=== PATIENT | male | born 1985 | race Caucasian/White ===

== ENCOUNTER 2020-01-08 08:35 | Outpatient (CLI) | payer BC, SELFPAY ==
--- NOTE | 2020-01-14 10:08 | SLEEP_ITS ---
Home Sleep Study DATE OF STUDY: 01/08/2020 REASON FOR THE STUDY: Excessive daytime sleepiness. 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 He has difficulty staying awake during the day and he dozes off if he sits down during the day. He has greater than normal fatigue with muscle aches and heat sensitivity. This has been going on for approximately 2 years. His has sleep apnea, but he does not have any relatives with sleep apnea. He rarely awakens from sleep feeling short of breath. Rarely has heartburn or belching or coughing at night. He never snores and it never is loud enough that others complain about it. He occasionally has trouble sleeping with the cold. He does not gasp for breath at night or have breathing problems at night witnessed by others. He constantly sweats excessively at night. He rarely notices his heart pounding or beating irregularly at night. He constantly falls asleep during the day, constantly, involuntarily, frequently while driving. He does not fall asleep with physical effort and he does not have loss of muscle tone with strong emotion. He constantly has daytime difficulty due to excessive sleepiness. He never feels paralyzed when waking or falling asleep and does not have vivid dreamlike scenes upon awakening or falling asleep. He is not afraid to go to sleep. He never has nightmares. He constantly remembers his dreams, occasionally has racing thoughts, frequently has sadness, depression, and anxiety. He constantly has muscular tension. He occasionally notices parts of his body jerking and he occasionally kicks at night. He constantly has crawly achy feeling in his legs. He occasionally has leg pain at night. He denies morning jaw pain, but occasionally grinds his teeth. He frequently is bothered by pain during the day. He is not awakened by pain at night. He frequently wakes up feeling stiff in the morning with sore achy muscles and pain in the neck and spine. He has fatigue, memory problems, concentration difficulties, depression. Bedtime is 10 p.m., falling asleep in 15 minutes, though sometimes as long as 1 hour. He occasionally awakens at night. If he awakens, he will eat cereal, readings on his telephone. He will stay awake for 1-2 hours, sometimes more. Weekends reveals that he goes to bed at midnight or an hour later. During the weekdays, he awakens at 4 or 5 a.m. On weekends, 6 to 7 a.m. He estimates 6-7 hours of sleep nightly. His poor sleep does make interactions with family more difficult. He does not take naps. Naps are not refreshing. He is usually drowsy in the morning for 3 hours or longer. MEDICAL COMORBIDITIES: Depression, ADHD, muscle pains. MEDICATIONS: 1. Paroxetine 10 mg a day. 2. Adderall XR 30 mg a day. 3. Bupropion XL 300 mg daily. HABITS: Never smoked tobacco. Caffeine, 2 to 3 beverages a day. No alcohol. DESCRIPTION OF THE STUDY: On the [place] Sleepiness Scale, the score is 14. This was conducted as an unattended type 3 portable home sleep test with 4 channel monitoring including respiratory effort channel, snoring channel, oxygen saturation channel, and heart rate channel. The study was scored using [facility] guidelines. The duration of the study is 8 hours 6 minutes. The apnea-hypopnea index is 4. Respiratory disturbance index is 5.6. Oxygen desaturation index is 3. Lowest desaturation is 80%. The patient had 5 apneas. 60% of the apneas were 3, were obstructive, 40% of the apneas were 2 were central. He had 23 hypopneas. He had 293 snoring events and 23 desaturations spending 5 minutes or 1% of the study below 88% saturation. Heart rate ranged from 58 to 128. IMPRESSION: 1. T
== END 2020-01-08 08:36 | disposition home or self-care (01) ==
PROVIDERS: PCP Family Medicine; Visit Provider Family Medicine
DX: G47.10 Hypersomnia, unspecified (principal)
CPT/HCPCS: 95806

== ENCOUNTER → 2020-12-13 06:02 | Outpatient (CLI) | payer BC, SELFPAY ==
[2020-12-13 19:10] LABS: SARS-CoV-2 RNA PCR Negative
== END ==
PROVIDERS: PCP Family Medicine; Visit Provider Internal Medicine Critical Care Medicine
DX: Z01.812 Encounter for preprocedural laboratory examination (principal); Z20.822 Contact with and (suspected) exposure to COVID-19
CPT/HCPCS: C9803; U0003; U0005

== ENCOUNTER 2020-12-16 09:02 | Outpatient (CLI) | payer BC, SELFPAY ==
--- NOTE | 2020-12-29 16:21 | WPDSLEEPSTUD ---
Sleep Study Date of Study: 12/16/20 Ordering Provider: Donnie Sykes MD Interpreting Physician: Sandhya Knight MD Sleep Study Type: Polysomnogram Height: 1.83 m Weight: 99.79 kg Body Mass Index: 29.8 Neck Circumference (inches): 17 [place]: 14 Reason for Sleep Study Hypersomnolence, falling asleep in the day, muscle aches Sleep History Lalo Ca is a 35 year old man with hypersomnolence and a home sleep test 01/08/2020 showing an AHI of 4 with desaturation to 80%. He presents now for a split night study to diagnosis and treat suspected obstructive sleep apnea. He has difficulty staying awake during the day and he dozes off if he sits down during the day. He has greater than normal fatigue with muscle aches and heat sensitivity. This has been going on for approximately 2 years. His has sleep apnea, but he does not have any relatives with sleep apnea. He rarely awakens from sleep feeling short of breath. Rarely has heartburn or belching or coughing at night. He never snores and it is rarely loud enough that others complain about it. He occasionally has trouble sleeping with a cold. He does not gasp for breath at night or have breathing problems at night witnessed by others. He frequently sweats excessively at night. He does not notice his heart pounding or beating irregularly at night. He frequently falls asleep during the day, occasionally involuntarily, and occasionally while driving. He does not fall asleep while exerting physical effort and he does not have loss of muscle tone with strong emotion. He constantly has daytime difficulty due to excessive sleepiness. He is a pharmacist. He never feels paralyzed when waking or falling asleep and does not have vivid dreamlike scenes upon awakening or falling asleep. He is not afraid to go to sleep. He never has nightmares. He occasionally remembers his dreams, occasionally has racing thoughts, occasionally has sadness, depression, and anxiety. He rarely has muscular tension. He frequently notices parts of his body jerking and he rarely kicks at night. He frequently has crawly achy feeling in his legs. He denies having leg pain at night. He denies morning jaw pain, and rarely grinds his teeth during sleep. He rarely is bothered by pain during the day. He is not awakened by pain at night. He does not wake up feeling stiff, however does wake with sore achy muscles occasionally, rarely with pain in the neck and spine. He has fatigue, constant memory problems and concentration difficulties, depression and occasional heartburn at night. He reports 15-20 lb weight gain in the last year. Bedtime is 10 p.m., falling asleep within a few minutes, sometimes longer. He occasionally awakens at night, once at most. If he awakens, he will eat cereal and then go to sleep on the couch. He will stay awake for less than 20 minutes. Weekends reveals that he goes to bed at 11:00 pm or midnight, wakes later, at 8-9:00 am. During the weekdays, he awakens between 4 or 5 a.m. He estimates 6-7 hours of sleep nightly. His poor sleep does make interactions with family more difficult. He says that he is not really a social person. He does not take naps. Naps are not refreshing. He is usually drowsy in the morning for 3 hours or longer. Habits: He never smoked tobacco. Caffeine 2-3 beverages a day. No alcohol or recreational drugs. [facility] Past Medical History Medical History (Updated 12/29/20 @ 17:00 by Sandhya Knight MD) ADHD (attention deficit hyperactivity disorder), inattentive type Adult BMI 29.0-29.9 kg/sq m Asperger syndrome Chronic depression Encounter for wellness examination in adult Social History Social History (Updated 11/11/20 @ 15:45 by Meri Vargas MA) Smoking status: Never smoker Alcohol intake: never Substance use: never Substance use type: does not use Medications Home Medications Medication Instructions Recorded Confirmed Type
[2020-12-29 16:25] VITALS: BMI 29.8
== END 2020-12-16 09:03 | disposition home or self-care (01) ==
LOC: ANHCSM 09:02
PROVIDERS: PCP Family Medicine; Visit Provider Family Medicine
DX: G47.10 Hypersomnia, unspecified (principal); G25.81 Restless legs syndrome
CPT/HCPCS: 95810